=== PATIENT | female | born 1950 | race Caucasian/White ===

== ENCOUNTER → 2017-03-01 | Outpatient (CLI) | payer MEDICARE, OTHER ==
[~2017-03-01] MED LIST: ASPI-263 PO; CYAN1TAB46 PO; CYCL-83 PO; FISH1CAP29 PO; HYDR-7 PO; MILK140C2 PO; OLIV250C PO; PRAS25CA5 PO; UBID50CA21 PO; [UNRECOGNIZED DRUG - CODE] PO; [UNRECOGNIZED DRUG - CODE] PO
--- NOTE | 2017-03-02 08:55 | DI ---
Indication: ITS.REASON: M25.531 PAIN IN RIGHT WRIST, evaluate for ganglion cyst PROCEDURE: MRI WRIST RIGHT W/O CONTRAST: Encounter: Initial Comparison: None Technique: Multiplanar multisequence MR imaging of the right wrist was performed without contrast Findings: A marker was placed indicating the patient's site of palpable abnormality. This is at the radial aspect of the carpal tunnel near the trapezium bone at the palmar aspect of the wrist. No ganglion cyst identified. There is some presumably degenerative edema seen within the trapezium and distal pole of the scaphoid bone due to triscaphe degenerative changes. There is also mild degenerative change in the first carpometacarpal joint. Subchondral cyst formation noted within the lunate and capitate bones. The wrist flexor and extensor tendons are intact. Scapholunate and lunotriquetral elements are grossly intact as is the triangular fibrocartilage. There is slight edema along the flexor carpi radialis without discrete or complete tear. Muscular signal intensity is normal. Impression: No ganglion cyst identified. Degenerative change in the triscaphe and first carpometacarpal joints. .
== END ==
LOC: IMA 15:43
PROVIDERS: ATTEND Physician Assistant Surgical
DX: R93.7 Abnormal findings on diagnostic imaging of other parts of musculoskeletal system (principal); M25.531 Pain in right wrist

== ENCOUNTER 2017-08-21 07:30 | Inpatient (IN) ==
[2017-09-20] MEDS ORDERED: LIDOCAINE 1% (10mg/ml) 2mL INJ PF SDV ID ONE (06:00)
[2017-09-20] MEDS ORDERED: DEXAMETHASONE 4 MG/ML INJECTION IVP ONE (06:00)
[2017-09-20] MEDS ORDERED: FAMOTIDINE PB 20 MG/50 ML BAG IV ONE (06:00)
[2017-09-20] MEDS ORDERED: NOZIN NASAL SWAB NAS ONE ×2 (06:00→17:42)
[2017-09-20] MEDS ORDERED: TRANEXAMIC ACID 1,000 MG in NS 100 ML IV ONE ×2 (06:00→07:00)
[2017-09-20] MEDS ORDERED: ACETAMINOPHEN 500 MG TABLET PO ONE (06:00)
[2017-09-20] MEDS ORDERED: ONDANSETRON 4 MG/2 ML INJECTION IVP ONE (06:00)
[2017-09-20] MEDS ORDERED: METOCLOPRAMIDE 10mg/2ml INJECTION IVP ONE (06:00)
[2017-09-20] MEDS ORDERED: EPINEPHrine PF 0.25 MG, BUPIVACAINE 0.25% PF 30 ML, MORPHINE SULFATE 15 MG, KETOROLAC I... OPSITE ONE (08:00)
[2017-09-20 10:08] VITALS: BMI 29.5
[2017-09-20] MEDS ORDERED: CEFAZOLIN 1 G INJECTION IVP ONE (10:10)
[2017-09-20] MEDS: LR 1,000 ML IV SCH ×2 (11:01→15:08)
--- NOTE | 2017-09-20 13:18 | Anesthesia Preoperative Report ---
Anesthesia Preoperative Record - Date and Time Date: 09/20/17 Preoperative Diagnosis: Rt TKA M17.11 NPO Since Date: 09/19/17 NPO Since Time: 22:45 Allergies/Adverse Reactions: Allergies Allergy/AdvReac Type Severity Reaction Status Date / Time No Known Allergies Allergy Verified 09/20/17 10:25 - Vital Signs Vital Signs: Temperature 97.9 F 09/20/17 10:00 Pulse Rate 68 09/20/17 10:20 Respiratory Rate 16 09/20/17 10:00 Blood Pressure 132/78 09/20/17 10:20 Pulse Oximetry 95 09/20/17 10:00 Height and Weight: Height 1.68 m Weight 82.8 kg Body Mass Index 29.5 - Medications Inpatient Medications: Current Medications Epinephrine HCl 0.25 mg/Bupivacaine HCl 30 ml/Morphine Sulfate 15 mg/Ketorolac Tromethamine 60 mg/Sodium Chloride 65.25 mls @ 1 mls/hr OPSITE INTRAOP ONE PRN Reason: Protocol Stop: 09/23/17 01:14 Lactated Ringer's (Lactated Ringers) 1,000 mls @ 50 mls/hr IV .Q20H KATIE Last Admin: 09/20/17 11:01 Dose: 50 mls/hr Sodium Chloride (Iv Flush) 10 - 80 ml IV PRN PRN PRN Reason: Flushing Home Medications: Home Medications Medication Instructions Recorded Confirmed Type Aspirin [Aspirin EC] 81 mg PO DAILY 08/27/17 09/20/17 History Melatonin 3 mg PO HS 08/27/17 09/20/17 History Is Patient on Beta Yaneli?: No - Medical History Respiratory: DENIES: Sleep Apnea Cardiovascular: Reports: Hypertension (at times, never on meds) Neuro/Musculoskeletal: Reports: HX.MS.OSAR Other History: Reports: Anesthesia Reactions (excessive somnolence post tubal xelzzhac-4-2 days) - Surgical History HEENT Surgeries: Reports: Eye Surgery (Lasik) Musculoskeletal Surgery/Tx: Reports: Other (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) Reproductive Surgery/Treatment: Reports: Tubal Ligation (& exc abscessed stitch left abdomen) Anesthesia Reactions: None Hx Family Anesthesia Reaction: No History of Motion Sickness: No - Social History Smoking Status: Current every day smoker Packs per day: 1 Pack-years: 50 Hx Chewing Tobacco Use: No Second Hand Exposure: No Substance Use Type: does not use Alcohol Intake Frequency: does not drink - Pertinent Findings EKG: Sinus Rhythm - Physical Exam Respiratory Exam: Present: lungs clear Cardiovascular Exam: Present: regular rate and rhythm - Airway Assessment Mallampati Score: I TMD: 3 Fingerbreadths Neck Extension: fair Teeth: upper dentures Overall Assessment: no airway concerns - ASA ASA Score: 2 - Plan Anesthesia: General TIVA, General Inhalation Gases, Neuroaxial Regional/Trunk Block: Spinal Peripheral Nerve Block: Saphenous-Right - Discussion Discussion: Discussed risks/options/alternatives of anesthesia and questions answered. Patient consents. Nursing pain assessment noted. Attestation Statement: Prior to the delivery of any anesthetic medication, I examined the patient, developed the plan, obtained the patient's consent and discussed the risk and benefits of the procedure with the patient/guardian. - Additional Information Seen by Anesthesia: Yes
[2017-09-20] MEDS ORDERED: FentaNYL 100 MCG/2 ML INJECTION ONE (13:26)
[2017-09-20] MEDS ORDERED: PROPOFOL 500 MG/50 ML VIAL IV ONE ×2 (13:27→15:22)
[2017-09-20] MEDS ORDERED: MIDAZOLAM 2mg/2ml INJECTION ONE (13:27)
[2017-09-20] MEDS ORDERED: VANCOMYCIN 1,000 MG INJECTION ONE (13:43)
[2017-09-20] MEDS ORDERED: EPHEDRINE 50mg/ml INJECTION ONE (14:40)
[2017-09-20] MEDS ORDERED: SALINE FLUSH 10ml SYRINGE ONE (15:02)
[2017-09-20] MEDS ORDERED: ONDANSETRON 4 MG/2 ML INJECTION IVP PRN ×2 (15:06→17:42)
[2017-09-20] MEDS ORDERED: VANCOMYCIN 1,000 MG INJECTION IAR ONE (15:13)
[2017-09-20] MEDS ORDERED: KETAMINE 500 MG/10 ML INJECTION ONE (15:48)
[2017-09-20] MEDS ORDERED: SALINE FLUSH 10ml SYRINGE IV PRN (15:55)
[2017-09-20] MEDS ORDERED: ROPIVACAINE 0.5% (5mg/ml) 30ml INJ ONE (15:58)
--- NOTE | 2017-09-20 16:02 | Operative Note ---
- Procedure Preoperative Diagnosis: Right knee primary degenerative joint disease Postoperative Diagnosis: Same as preoperative diagnosis. Surgeon: Gerry Moctezuma MD Appeals Nurse: Jonathan Durant Complications: None. Anesthesia: Spinal. Estimated Blood Loss: See Anesthesia Record. Fluids: Please see Anesthesia Record. Description of Procedure: Mrs. Reed and her right knee were identified and marked in the preoperative holding area. She was brought back to the operating suite after a saphenous nerve block was placed in the preoperative holding area. Spinal anesthetic was administered and she was placed supine on the operating table. The right lower extremity was prepped and draped in my normal sterile fashion. Timeout was performed. The [employer] robot was used during the surgery. She had a fixed varus deformity. Should flexion contracture of 9. A standard anterior midline incision followed by medial parapatellar arthrotomy was performed. Anterior fat pad and meniscus were removed. The patella was resurfaced to a size 32. Tibial and femoral arrays were placed both within the original incision. Checkpoints were then placed both in the femur and the tibia. The bone was then registered with the [employer] robot. Osteophytes were removed and gaps were captured both 90 and 0 with correction. The [employer] robotic software is used to balance gaps at 18 Mm throughout. The [employer] robotic arm was then used to assist with the bone cuts. Posterior osteophytes and remaining meniscus were removed. Trial components were placed. We used a 5 femur and a 4 tibia with a 9 mm spacer. She tracked well and was well balanced throughout range of motion. Her bone quality was good and elected to proceed with press-fit components. The tibia was stamped at size 4 at the previously marked rotation. Components The knee was ranged one more time to ensure good stability, balance and patellar tracking. 1 g of vancomycin powder was then placed into the knee joint. The capsulotomy was then closed with #1 Vicryl. I then left my kindergarten assistant to close the subcutaneous tissue with 2-0 Vicryl. Running 4-0 Monocryl will be used in the subcuticular layer. Dermabond will be used on the skin followed by sterile dressing. After drapes are removed patient will be taken to recovery room under the care of anesthesia.
--- NOTE | 2017-09-20 16:26 | Anesthesia Procedure Note ---
Peripheral Nerve Blockade - Procedure Physician: Cecil Moctezuma MD Date: 09/20/17 Surgical Procedure: Right TKA Discussion: Discussed risks/options/alternatives of anesthesia and questions answered. Patient consents. Nursing pain assessment noted. Block Start: 16:16 Block Stop: 16:19 Blocked Employed: Adductor Canal Indication: Post-Operative Pain Approach: Right Side Confirmed Position: Supine, Semi-Henning Patient: Consent, Risks/Benefits Discussed, Informed, Post Block Act. Discussed IV Sedation: No Initial Vital Signs: Temperature 97.9 F 09/20/17 10:00 Temperature Source Oral 09/20/17 10:00 Pulse Rate 72 09/20/17 10:00 Respiratory Rate 16 09/20/17 10:00 Blood Pressure 172/99 H 09/20/17 10:00 Blood Pressure Mean 123 09/20/17 10:00 Blood Pressure Position Sitting 09/20/17 10:00 Pulse Oximetry 95 09/20/17 10:00 Oxygen Delivery Method 09/20/17 10:00 Post Vital Signs: Temperature 97.9 F 09/20/17 10:00 Pulse Rate 68 09/20/17 10:20 Respiratory Rate 16 09/20/17 10:00 Blood Pressure 132/78 09/20/17 10:20 Pulse Oximetry 95 09/20/17 10:00 Initial Pain Pain Score: 0 Post Block Pain Score: 0 Prep: Chlorhexadine/ETOH Ultrasound Used?: Yes - Injectate Ropivacaine (%): 0.5 Ropivacaine (mL): 20 Was Epi 1:200,000 Used?: No Injection: Injection made incrementally with constant monitoring and aspiration every ml
--- NOTE | 2017-09-20 16:27 | Anesthesia Postoperative Note ---
- Date and Time Date: 09/20/17 Time: 16:27 - Status Patient Participated in Evaluation: Patient Participated in Person Vital Signs: Temperature 97.9 F 09/20/17 10:00 Pulse Rate 68 09/20/17 10:20 Respiratory Rate 16 09/20/17 10:00 Blood Pressure 132/78 09/20/17 10:20 Pulse Oximetry 95 09/20/17 10:00 Respiratory Function: Airway Patent Cardiovascular Function: Regular Pulse EKG: Sinus Rhythm Mental Status: Alert and Oriented Pain Intensity: 0 Hydration: IV Infusing Complications During Recover: None Apparent - Follow-Up Instructions Instructions: Per Surgeon
[2017-09-20] MEDS: HYDROMORPHONE 2 MG/ML INJECTION IVP PRN ×2 (16:48→16:59)
[2017-09-20] MEDS ORDERED: DiphenhydrAMINE 50 MG/ML INJECTION IVP PRN (17:42)
[2017-09-20] MEDS ORDERED: LORazepam 1 MG TABLET PO PRN (17:42)
[2017-09-20] MEDS ORDERED: DiphenhydrAMINE 25 MG CAPSULE PO PRN (17:42)
[2017-09-20] MEDS ORDERED: NAPROXEN 220 MG TABLET PO PRN (17:42)
[2017-09-20] MEDS: NS 1,000 ML IV SCH (17:44)
[2017-09-20] MEDS: ACETAMINOPHEN 325 MG TABLET PO SCH ×2 (18:17→22:06)
[2017-09-20] MEDS: ASPIRIN *EC* 81 MG TABLET PO SCH (20:31)
[2017-09-20] MEDS: NOZIN NASAL SWAB NAS SCH ×2 (20:32→23:21)
[2017-09-20] MEDS: Oxycodone *IR* 5 MG TABLET PO PRN (20:32)
[2017-09-20] MEDS: DOCUSATE SODIUM 100 MG CAPSULE PO SCH (20:32)
[2017-09-20] MEDS ORDERED: SENNOSIDES 8.6 MG TABLET PO SCH (21:00)
[2017-09-20] MEDS ORDERED: MELATONIN 1 MG TABLET PO SCH (21:00)
[2017-09-20] MEDS: DEXAMETHASONE 4 MG/ML INJECTION IVP SCH (22:03)
[2017-09-20] MEDS: CEFAZOLIN 2 G in NS 100 ML IV SCH (22:08)
[2017-09-21] MEDS: Oxycodone *IR* 5 MG TABLET PO PRN ×4 (00:23→12:39)
[2017-09-21] MEDS: DEXAMETHASONE 4 MG/ML INJECTION IVP SCH (06:12)
[2017-09-21] MEDS: NOZIN NASAL SWAB NAS SCH (06:12)
[2017-09-21] MEDS: CEFAZOLIN 2 G in NS 100 ML IV SCH (06:14)
[2017-09-21] MEDS: NS 1,000 ML IV SCH (06:14)
[2017-09-21] MEDS: DOCUSATE SODIUM 100 MG CAPSULE PO SCH (08:12)
[2017-09-21] MEDS: ASPIRIN *EC* 81 MG TABLET PO SCH (08:12)
[2017-09-21] MEDS: ACETAMINOPHEN 325 MG TABLET PO SCH ×2 (08:12→12:39)
--- NOTE | 2017-09-21 08:29 | Orthopedic Progress Note ---
Date: Subjective/Severity of Illness: Julieta is doing great. She is feeling good. Pain is controlled. No CP or SOA. Had a run of v-tach overnight but was asymptomatic. No other concerns. Orthopedic Objective PO Vital signs: Temperature 98.8 F 09/21/17 07:42 Pulse Rate 68 09/21/17 07:42 Respiratory Rate 16 09/21/17 07:42 Blood Pressure 106/66 09/21/17 07:42 Pulse Oximetry 93 09/21/17 07:42 Height and Weight: Height 5 ft 6 in Weight 195 lb 15.855 oz Body Mass Index 29.5 - Constitutional General Appearance: Present: alert, cooperative, no acute distress - Respiratory Exam Present: non-labored - Extremities Exam Extremities: Present: pulses intact. Absent: calf tenderness - Surgical Site Incision: Mepilex dressing intact, no drainage - Neurological Exam Present: intact to light touch, no deficits - Psychiatric Exam Present: alert - Labs Result Diagrams: 09/21/17 03:59 09/21/17 03:59 Abnormal lab results 09/21/17 Range/Units 03:59 BUN 19.0 H (7-17) MG/DL Glucose 180 H (65-110) MG/DL H & H 09/21/17 Range/Units 03:59 Hgb 12.7 (12-16) GM/DL Hct 39.2 (36-46) % Orthopedic Assessment and Plan (1) Primary osteoarthritis of right knee Status: Acute Assessment and Plan: Current anti-coagulation protocol for VTE prophylaxis. No further v-tach noted. Pt not symptomatic. Will monitor. SCD's. PT/OT services to improve independent function. Discharge Planning per Case Management. - Anticoagulation Therapy Anticoagulation: ASA 81 mg PO BID x6 weeks Hospital Course Summary Disclaimer: The visit summary below is not to be considered part of the above Progress Note.
--- NOTE | 2017-09-21 08:50 | XRay Report ---
Indication: postoperative image PROCEDURE: XR knee RT 2V: Encounter: Initial Comparison: February 26, 2017 Findings: Postoperative changes of right total knee replacement are seen. There is expected postoperative subcutaneous gas. No evidence of hardware failure or acute fracture. No retained radiopaque surgical instruments or sponges. Overlying material causing artifact. Impression: New right total knee prosthesis without evidence of immediate complication. .
[2017-09-21] MEDS ORDERED: POLYETHYL GLYCOL 3350 17gm PACKET PO SCH (09:00)
--- NOTE | 2017-09-21 12:22 | Discharge Summary ---
Orthopedic Discharge Info Date of admission: 09/20/17 09:27 Primary care physician: Clint Bruce MD Attending Physician: Cecil Moctezuma MD Consults: 09/20/17 10:06 Consult to Anesthesiology [CONS] Routine Reason For Exam: Preoperative Assessment 09/20/17 17:42 Case Management Consult [CONS] Routine Reason For Exam: Discharge Planning DME-Walker [CONS] Routine Height: 5 ft 6 in Weight: 182 lb 8.684 oz Comment: change dressing in 2 weeks Total Joint Outpatient Therapy [CONS] Routine Comment: change dressing in 2 weeks - Discharge Diagnosis (1) Primary osteoarthritis of right knee Status: Acute - Procedures Procedures: Rt TKA - Laboratory Result Diagrams: 09/21/17 03:59 09/21/17 03:59 Laboratory: Abnormal lab results 09/21/17 Range/Units 03:59 BUN 19.0 H (7-17) MG/DL Glucose 180 H (65-110) MG/DL H & H 09/21/17 Range/Units 03:59 Hgb 12.7 (12-16) GM/DL Hct 39.2 (36-46) % Orthopedic Discharge HPI - HPI Comments This patient was admitted for elective surgical tx of end stage degenerative joint disease that failed to respond to conservative treatment. Further details of this is found in the admission H&P. Orthopedic Hospital Course Hospital course: 09/21/17 12:18 After appropriate preoperative clearance and signing of operative consent, the patient was given IV antibiotics, according to orthopedic protocol. The patient was taken to the operating room and underwent elective joint arthroplasty. Following surgery, antibiotics were discontinued less than 24 hours according to joint protocol. Appropriate anticoagulants were initiated and SCDs added for DVT prevention. The dressing was clean, dry, and intact. Pain control was obtained via multimodal approach. Bowel motivation addressed with scheduled and PRN medications. Early mobilization was initiated through PT services. Discharge arrangements made by a collaborative effort between the patient and Case Management. A low O2 sat was noted the first post op night. A short run of V-tach was also seen in relation to this. The patient was treated with O2 and was asymptomatic throughout. This was discussed with the patient and daughter at discharge. Sleep study was recommended on an outpatient basis and follow up with PCP within 1 week. We also recommended minimizing use of narcotics. Dr. Moctezuma was notified and and ECG was completed which showed NSR with a rate of 61. Follow-up is scheduled in 2-3 weeks. Discharge instructions given by orthopedic providers and nursing staff at discharge. Discharge condition was good. 09/21/17 12:19 09/21/17 12:22 Ongoing care required?: No Comments: Follow up with PCP within a week for further evaluation and possible sleep study. - Postoperative Anemia patient received IVF, labs monitored daily, no intervention required, HGB drop- acceptable Discharge Plan - Med Rec/Dispo Referrals/Follow Up: Cecil Moctezuma MD [Physician] - 10/15/17 10:45 am Additional Instructions: Follow up with PCP within 1 week for possible sleep study. Prescriptions: New Acetaminophen [Tylenol] 650 mg PO QID tablet Aspirin *EC* [Ecotrin] 81 mg PO BID #84 tab Naproxen [Aleve] 440 mg PO BID PRN #60 tab PRN Reason: Pain Oxycodone *IR* [Roxicodone *Ir*] 5 - 15 mg PO Q3H PRN #60 tab PRN Reason: Breakthrough Pain PEG 3350 17gm PACKET [Miralax] 17 gm PO DAILY packet Continue Melatonin 3 mg PO HS Discontinued Aspirin [Aspirin EC] 81 mg PO DAILY - Disposition 01 Discharged Home, Self-Care - Dismissal Complete Discharge Instructions are:: Complete
[2017-09-21 12:33] VITALS: BP 121/67; PULSE 70; RESP 20; TEMP 98.3; O2SAT 95
[2017-09-21] MEDS ORDERED: SENNOSIDES 8.6 MG TABLET PO PRN (16:08)
[2017-09-22] MEDS ORDERED: BISACODYL 10 MG SUPPOSITORY RECTALLY SCH (20:00)
== END 2017-09-21 13:00 | disposition home or self-care (01) | DRG 470 ==
LOC: SRG 09-20 09:27
PROVIDERS: ADMIT Orthopaedic Surgery; ATTEND Orthopaedic Surgery